=== PATIENT | male | born 1930 | race Caucasian/White ===

== ENCOUNTER 2021-01-13 08:49 | Inpatient (IN) ==
[2021-01-13] MEDS ORDERED: NS 0.9% 1000 ml BAG 1,000 ML IV ONE (09:23)
[2021-01-13 10:02] LABS: ABS Eosinophils 0.1 10^3/ul (0-0.6); ABS Lymphocytes 1.1 10^3/ul (1.0-4.8); ABS Monocytes 0.8 10^3/ul (0-0.8); ABS Neutrophils 5.7 10^3/ul (1.5-7.7); Eosinophil % 0.8 %; Hematocrit 38 % (42-52); Hemoglobin 12.9 g/dL (14.0-18.0); Lymphocyte % 14.6 %; Mean Corpuscular HGB Conc 34 g/dL (31-36); Mean Corpuscular Hemoglobin 31 pg (27-31); Mean Corpuscular Volume 93 fL (80-94); Mean Platelet Volume 6.9 fL (7.4-10.4); Platelet Count 271 10^3/uL (150-450); Red Blood Count 4.14 10^6 /uL (4.18-5.48); Red Cell Distribution Width 14 % (10-15); White Blood Count 7.7 10^3/uL (3.5-10.8)
[2021-01-13 10:04] LABS: Albumin 3.8 g/dL (3.2-5.2); Albumin/Globulin Ratio 1.4 (1-3); BUN/Creatinine Ratio 23.4 (8-20); C Reactive Protein 3.12 mg/L (<8.01); Calcium 8.7 mg/dL (8.6-10.3); EGFR African American 57.3 (>60); EGFR Non-African American 47.3 (>60); Globulin 2.8 g/dL (2-4); Magnesium 2.1 mg/dL (1.9-2.7); Potassium 3.5 mmol/L (3.5-5.0); Total Bilirubin 0.4 mg/dL (0.2-1.0); Total Protein 6.6 g/dL (6.4-8.9)
[2021-01-13] MEDS ORDERED: Ondansetron 4 mg VIAL 2 MG/ML 2 ml VIAL IV PRN (12:09)
[2021-01-13] MEDS ORDERED: NS 0.9% 1000 ml BAG 1,000 ML IV SCH (12:15)
[2021-01-13 15:53] LABS: Urine Appearance Cloudy; Urine Bilirubin Negative (Negative); Urine Blood 3+ (Negative); Urine Color Amber; Urine Glucose Negative (Negative); Urine Ketones 1+ (Negative); Urine Nitrite Negative (Negative); Urine Protein 1+(30 mg/dL) (Negative); Urine Specific Gravity 1.033 (1.010-1.030); Urine Urobilinogen Negative (Negative)
[2021-01-13 15:55] LABS: Urine Bacteria Absent (Absent); Urine Red Blood Cell 3+(>10/hpf) (Absent); Urine Squamous Epithelial Cell Present (Absent); Urine White Blood Cell Absent (Absent)
[2021-01-13] MEDS: Heparin 5000 UNITS/ML 1 mL VIAL SUBCUT SCH ×2 (15:56→22:00)
[2021-01-13] MEDS: Polyethylene Glycol 3350 17 GM PACKET PO SCH (19:10)
[2021-01-14] MEDS ORDERED: NS 0.9% 500 ml BAG 500 ML IV ONE (03:10)
[2021-01-14] MEDS: Heparin 5000 UNITS/ML 1 mL VIAL SUBCUT SCH ×3 (05:43→21:19)
[2021-01-14 06:28] LABS: BUN/Creatinine Ratio 23.9 (8-20); Calcium 7.7 mg/dL (8.6-10.3); EGFR African American 77.1 (>60); EGFR Non-African American 63.7 (>60); Potassium 3.6 mmol/L (3.5-5.0)
[2021-01-14] MEDS: Polyethylene Glycol 3350 17 GM PACKET PO SCH (08:07)
[2021-01-14] MEDS ORDERED: Influenza VAC *QUAD* 2020-21* 0.5 ML SYRINGE IM ONE (09:00)
[2021-01-14] MEDS ORDERED: Aspirin EC 81 mg TAB.EC (enteric coated) PO SCH (09:00)
[2021-01-14] MEDS: NS 0.9% 1000 ml BAG 1,000 ML IV SCH (14:02)
[2021-01-15] MEDS: NS 0.9% 1000 ml BAG 1,000 ML IV SCH ×2 (03:37→18:28)
[2021-01-15] MEDS: Heparin 5000 UNITS/ML 1 mL VIAL SUBCUT SCH ×3 (05:23→21:56)
[2021-01-15 06:06] LABS: ABS Eosinophils 0.1 10^3/ul (0-0.6); ABS Lymphocytes 1.1 10^3/ul (1.0-4.8); ABS Monocytes 0.5 10^3/ul (0-0.8); ABS Neutrophils 3.9 10^3/ul (1.5-7.7); Eosinophil % 1.5 %; Hematocrit 33 % (42-52); Lymphocyte % 19.1 %; Mean Corpuscular HGB Conc 33 g/dL (31-36); Mean Corpuscular Hemoglobin 31 pg (27-31); Mean Corpuscular Volume 94 fL (80-94); Mean Platelet Volume 6.9 fL (7.4-10.4); Platelet Count 217 10^3/uL (150-450); Red Blood Count 3.54 10^6 /uL (4.18-5.48); Red Cell Distribution Width 14 % (10-15); White Blood Count 5.6 10^3/uL (3.5-10.8)
[2021-01-15 06:16] LABS: Calcium 7.7 mg/dL (8.6-10.3); EGFR African American 76.3 (>60); Potassium 3.6 mmol/L (3.5-5.0)
[2021-01-15] MEDS: Polyethylene Glycol 3350 17 GM PACKET PO SCH (09:39)
[2021-01-15] MEDS ORDERED: fentaNYL 100 mcg/2 ml 50 MCG/ML VIAL ONE (13:33)
[2021-01-15] MEDS ORDERED: Midazolam 10 mg/10 ml VIAL 1 mg/ml 10 ml VIAL (10 mg) ONE (13:33)
[2021-01-16] MEDS: Heparin 5000 UNITS/ML 1 mL VIAL SUBCUT SCH ×3 (05:40→21:40)
[2021-01-16 06:26] LABS: ABS Eosinophils 0.1 10^3/ul (0-0.6); ABS Lymphocytes 0.9 10^3/ul (1.0-4.8); ABS Monocytes 0.6 10^3/ul (0-0.8); ABS Neutrophils 4.4 10^3/ul (1.5-7.7); Eosinophil % 1.6 %; Hematocrit 35 % (42-52); Hemoglobin 11.8 g/dL (14.0-18.0); Mean Corpuscular HGB Conc 34 g/dL (31-36); Mean Corpuscular Hemoglobin 32 pg (27-31); Mean Corpuscular Volume 94 fL (80-94); Mean Platelet Volume 7.1 fL (7.4-10.4); Platelet Count 221 10^3/uL (150-450); Red Blood Count 3.74 10^6 /uL (4.18-5.48); Red Cell Distribution Width 14 % (10-15)
[2021-01-16 06:44] LABS: BUN/Creatinine Ratio 16.8 (8-20); Calcium 7.7 mg/dL (8.6-10.3); EGFR African American 84.2 (>60); EGFR Non-African American 69.6 (>60); Potassium 3.6 mmol/L (3.5-5.0)
[2021-01-16] MEDS: Polyethylene Glycol 3350 17 GM PACKET PO SCH (08:22)
[2021-01-16] MEDS: NS 0.9% 1000 ml BAG 1,000 ML IV SCH ×2 (08:24→21:38)
[2021-01-17] MEDS: Heparin 5000 UNITS/ML 1 mL VIAL SUBCUT SCH ×3 (05:41→21:42)
[2021-01-17] MEDS: Polyethylene Glycol 3350 17 GM PACKET PO SCH (08:52)
[2021-01-17] MEDS ORDERED: Lactated Ringers 1000 ml BAG 1,000 ML IV SCH (16:00)
[2021-01-17] MEDS ORDERED: Senna TAB 8.6 mg TAB PO PRN (21:59)
[2021-01-18] MEDS: Heparin 5000 UNITS/ML 1 mL VIAL SUBCUT SCH ×2 (05:56→14:21)
[2021-01-18] MEDS: Polyethylene Glycol 3350 17 GM PACKET PO SCH (09:45)
[2021-01-18 16:22] VITALS: BP 118/48
== END 2021-01-18 19:15 | disposition home health service (06) | DRG 375 ==
LOC: MED 08:49 → ED 08:49 → OBSVTOIN 12:09 → INTOOBSV 12:09 → MED 14:08
PROVIDERS: ADMIT Hospitalist; ATTEND Internal Medicine